=== PATIENT | female | born 2000 | race Caucasian/White ===

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

== ENCOUNTER → 2020-06-15 10:48 | Outpatient (CLI) | payer SELFPAY ==
[2020-06-15 14:26] LABS: Hemoglobin A1c 5.1 % (3.8-5.6)
== END ==
PROVIDERS: Visit Provider Student in an Organized Health Care Education/Training Program
DX: E28.2 Polycystic ovarian syndrome (principal)
CPT/HCPCS: 36415; 83036